=== PATIENT | male | born 1985 | race American Indian/Alaskan Native ===

== ENCOUNTER 2017-08-14 02:55 | Emergency (ER) | payer SELFPAY ==
[2017-08-14 03:07] VITALS: BP 124/89
[2017-08-14] MEDS ORDERED: MOTRIN ONE (05:39)
[2017-08-14] MEDS ORDERED: FUL-GLO OP ONE ×2 (05:39→05:42)
[2017-08-14] MEDS ORDERED: MOTRIN PO ONE (05:43)
--- NOTE | 2017-08-14 05:57 | Emergency Department Report ---
ED Eye Problem HPI - General Chief complaint: Eye Problems Stated complaint: EYE PAIN Time Seen by Provider: 08/14/17 05:53 Source: patient Mode of arrival: Ambulatory Limitations: No Limitations - History of Present Illness Initial comments: 31-year-old Thai male comes to the emergency room stating that his son accidentally poked him in his left eye with his finger. Patient reports right eye is also redness swollen. Patient is holding a washcloth to his side and rocking [id number] in triage. Patient reports that the pain is a 10 out of 10 and this in his left eye chemosis. She denies any past medical history currently takes no medications on a daily basis and is allergic to penicillin. -: Sudden, During the night Onset Description: sudden Location: left eye Place: home If Injury: direct trauma Eye Symptoms: burning, redness, pain, photophobia Severity: severe Severity scale (0 -10): 10 If Pain, Quality: burning, aching, throbbing Consistency: constant Context: trauma Associated Symptoms: headache Treatments Prior to Arrival: none - Related Data Previous Rx's Medication Instructions Recorded Last Taken Type Ibuprofen [Motrin 800 MG tab] 800 mg PO Q8HR PRN #30 tablet 08/14/17 Unknown Rx Polymyxin B Sulf/Trimethoprim 1 drop OS QID #1 bottle 08/14/17 Unknown Rx [Polytrim Eye Drops] oxyCODONE /ACETAMINOPHEN [Percocet 1 tab PO Q4HR #12 tab 08/14/17 Unknown Rx 5/325] Allergies Allergy/AdvReac Type Severity Reaction Status Date / Time Penicillins Allergy Unknown Verified 08/14/17 03:14 ED Review of Systems ROS: Stated complaint: EYE PAIN Other details as noted in HPI Eyes: eye pain, eye discharge, vision change, other (photophobia) Gastrointestinal: denies: abdominal pain, nausea, diarrhea Skin: denies: rash, lesions Neurological: headache Psychiatric: denies: anxiety, depression ED Past Medical Hx - Past Medical History Previous Medical History?: No - Surgical History Past Surgical History?: Yes Hx Appendectomy: Yes Additional Surgical History: Finger surgery - Social History Smoking Status: Current Every Day Smoker - Medications Home Medications: Home Medications Medication Instructions Recorded Confirmed Last Taken Type Ibuprofen [Motrin 800 MG tab] 800 mg PO Q8HR PRN #30 tablet 08/14/17 Unknown Rx Polymyxin B Sulf/Trimethoprim 1 drop OS QID #1 bottle 08/14/17 Unknown Rx [Polytrim Eye Drops] oxyCODONE /ACETAMINOPHEN [Percocet 1 tab PO Q4HR #12 tab 08/14/17 Unknown Rx 5/325] ED Physical Exam - General Limitations: No Limitations General appearance: alert, in no apparent distress - Head Head exam: Present: atraumatic, normocephalic - Expanded Eye Exam Expanded Eyelids: Normal Inspection: Left Pupils: Regular, Round: Bilateral (left cornea scratch/abrasion to the center of the cornea fluorescein uptake appreciated) Sclera/Conjunctival: Injection: Bilateral Posterior chamber: Deferred: Bilateral - ENT ENT exam: Present: mucous membranes moist - Neck Neck exam: Present: normal inspection - Respiratory Respiratory exam: Present: normal lung sounds bilaterally. Absent: respiratory distress - Cardiovascular Cardiovascular Exam: Present: regular rate, normal rhythm. Absent: systolic murmur, diastolic murmur, rubs, gallop ED Course Vital Signs 08/14/17 08/14/17 03:02 03:16 Temperature 98.0 F 98.0 F Pulse Rate 64 68 Respiratory 18 18 Rate Blood Pressure 124/89 124/89 O2 Sat by Pulse 97 97 Oximetry ED Medical Decision Making - Medical Decision Making Patient has been evaluated by this provider fast track. Will place patient on Polytrim eyedrops 4 times a day. Placed patient on Percocet and ibuprofen for pain management. Encourage patient to wear sunglasses. Discussed the patient the importance of following up with piercer operator in the next 24-72 hours. Patient verbalized understanding. Critical care attestation.: If time is entered above; I have spent that time in minutes in the direct care of this critically ill patient, excluding procedure time. ED Disposition Clinical Impression: Corneal abrasion, left Qualifiers: Encounter type: initial encounter Qualified Code(s): S05.02XA - Injury of conjunctiva and corneal abrasion without foreign body, left eye, initial encounter Disposition: TO HOME OR SELFCARE Is pt being admited?: No Does the pt Need Aspirin: No Condition: Stable Instructions: Corneal Abrasion (ED) Additional Instructions: Please use eyedrops as prescribed. Please take pain medication as prescribed. Please do not operate heavy machinery while taking the Percocet. Please eat before taking the ibuprofen. It's very very important for you to follow-up with an eye care professional I have listed several below. Prescriptions: Ibuprofen [Motrin 800 MG tab] 800 mg PO Q8HR PRN #30 tablet PRN Reason: Pain oxyCODONE /ACETAMINOPHEN [Percocet 5/325] 1 tab PO Q4HR #12 tab Polymyxin B Sulf/Trimethoprim [Polytrim Eye Drops] 1 drop OS QID #1 bottle Referrals: PRIMARY CAREMD [Primary Care Provider] - 3-5 Days [facility] [Provider Group] - 3-5 Days [facility] [Provider Group] - 3-5 Days MITA HOWE MD [Staff Physician] - 3-5 Days Forms: Work/School Release Form(ED), Accompanied Note
== END 2017-08-14 06:10 | disposition home or self-care (01) ==
LOC: ED 02:55
DX: S05.02XA Injury of conjunctiva and corneal abrasion without foreign body, left eye, initial encounter (principal); F17.200 Nicotine dependence, unspecified, uncomplicated; Z88.0 Allergy status to penicillin; Z90.49 Acquired absence of other specified parts of digestive tract; W51.XXXA Accidental striking against or bumped into by another person, initial encounter; Y93.89 Activity, other specified; Y92.89 Other specified places as the place of occurrence of the external cause; Y99.8 Other external cause status
CPT/HCPCS: 99282